=== PATIENT | female | born 1975 | race Caucasian/White ===

== ENCOUNTER 2022-04-04 14:15 | Emergency (ER) | payer OTHER ==
[~2022-04-04] VITALS: Ht 177.8 cm; Wt 124.2 kg
[~2022-04-04 14:15] MED LIST: MULT-13
[2022-04-04 15:13] VITALS: BP 137/98
[2022-04-04] MEDS ORDERED: traMADol HCL 50 MG TAB PO ONE (15:30)
[2022-04-04] MEDS ORDERED: IBUP800T26 PO (17:06)
[2022-04-04] MEDS ORDERED: HYDR-4902 PO (17:06)
== END 2022-04-04 17:15 | disposition home or self-care (01) ==
LOC: ER 14:15
DX: S16.1XXA Strain of muscle, fascia and tendon at neck level, initial encounter (principal); S39.012A Strain of muscle, fascia and tendon of lower back, initial encounter; T14.8XXA Other injury of unspecified body region, initial encounter; Z88.0 Allergy status to penicillin; V89.2XXA Person injured in unspecified motor-vehicle accident, traffic, initial encounter; Y93.89 Activity, other specified; Y92.89 Other specified places as the place of occurrence of the external cause; Y99.8 Other external cause status
CPT/HCPCS: 72040; 72100